=== PATIENT | female | born 1965 | race Caucasian/White ===

== ENCOUNTER → 2017-12-04 07:49 | Outpatient (CLI) | payer OTHER, SELFPAY ==
[2017-12-04 09:54] LABS: Cholesterol 225 mg/dL (140-199); HDL Cholesterol 50 mg/dL (40-60); LDL Cholesterol Calculated 149 mg/dL (<100); Triglycerides 131 mg/dL (35-150)
[2017-12-04 10:13] LABS: Thyroid Stimulating Hormone 2.36 uIU/mL (0.47-4.68)
[2017-12-04 10:17] LABS: T4 Total Thyroxine 6.33 ug/dL (5.5-11.0); T7 (Free Thyroxine Index) 2.01 (1.65-3.89); Triiodothryronine T3 Uptake 31.7 % (23.5-40.5)
[2017-12-04 11:49] LABS: Free T3, Triiodothyronine Free 3.75 pg/mL (2.77-5.27)
== END ==
PROVIDERS: PCP Nurse Practitioner Family; Visit Provider Nurse Practitioner Family
DX: E03.9 Hypothyroidism, unspecified (principal); E78.2 Mixed hyperlipidemia
CPT/HCPCS: 36415; 80061; 84436; 84443; 84479; 84481

== ENCOUNTER → 2021-04-11 08:33 | Outpatient (CLI) | payer OTHER, SELFPAY ==
[2021-04-11 09:00] LABS: Hematocrit 40.6 % (36-46); Hemoglobin 13.5 g/dL (12.0-16.0); Mean Corpuscular HGB Conc 33.3 % (30-36); Mean Corpuscular Hemoglobin 29.4 PG (26-34); Mean Corpuscular Volume 88.3 fL (80-100); Platelet Count 242 X10^3/uL (150-400); Red Cell Distribution Width 13.2 % (11.6-14.8)
[2021-04-11 09:20] LABS: Alanine Aminotransferase 35 IU/L (<35); Albumin 4.4 g/dL (3.5-5.0); Albumin Globulin Ratio 1.6 (1.0-2.8); Alkaline Phosphatase 66 U/L (38-126); Aspartate Aminotransferase 33 IU/L (14-36); BUN Creatinine Ratio 19.2 (6-22); Bilirubin Total 0.5 mg/dL (0.2-1.3); Blood Urea Nitrogen 14 mg/dL (7-17); Calcium 9.9 mg/dL (8.4-10.2); Carbon Dioxide 30 mmol/L (22-32); Chloride 103 mmol/L (98-107); Cholesterol 229 mg/dL (140-199); Estimated Glomerular Filt Rate > 60.0 mL/min (>60); Globulin 2.7 g/dL (1.7-4.1); Glucose 99 mg/dL (70-100); HDL Cholesterol 48 mg/dL (40-60); HEMOLYSIS < 15 (0-50); LDL Cholesterol Calculated 126 mg/dL (<100); Potassium 4.6 mmol/L (3.4-5.1); Sodium 141 mmol/L (137-145); Total Protein 7.1 g/dL (6.3-8.2); Triglycerides 277 mg/dL (35-150)
[2021-04-11 09:35] LABS: Free T3, Triiodothyronine Free 6.13 pg/mL (2.77-5.27); Free T4, Direct Thyroxine 0.91 ng/dL (0.78-2.19)
[2021-04-11 09:48] LABS: Thyroid Stimulating Hormone 3.24 uIU/mL (0.47-4.68)
== END ==
PROVIDERS: Family Provider Internal Medicine; PCP Registered Nurse Diabetes Educator; Referring Provider Registered Nurse Diabetes Educator; Visit Provider Registered Nurse Diabetes Educator
DX: E78.5 Hyperlipidemia, unspecified (principal); E89.0 Postprocedural hypothyroidism
CPT/HCPCS: 36415; 80053; 80061; 84439; 84443; 84481; 85027

== ENCOUNTER → 2021-06-23 13:39 | Outpatient (CLI) | payer OTHER, SELFPAY ==
[2021-06-23 14:21] LABS: COVID19 -Nasal RAPID Negative (Negative)
== END ==
PROVIDERS: Family Provider Internal Medicine; PCP Registered Nurse Diabetes Educator; Visit Provider Nurse Practitioner Family
DX: Z20.822 Contact with and (suspected) exposure to COVID-19 (principal)
CPT/HCPCS: 87635

== ENCOUNTER → 2022-10-27 07:35 | Outpatient (CLI) | payer OTHER, SELFPAY ==
--- NOTE | 2022-10-27 07:36 | DI.US.S_ITS ---
PROCEDURE: US THYROID INDICATIONS: THYROID NODULE, FULLNESS OF NECK TECHNIQUE: Real-time scanning was performed of the thyroid gland, with image documentation. [facility] 15[facility] 15[facility]28. FINDINGS: Right: Thyroid lobe measures 5.2 x 1.2 x 2.2 cm, and is homogeneous in echotexture. Left: Thyroid lobe is surgically absent. Isthmus: 2 mm thick. Nodule number: 1 Location: Right upper Size: 0.8 x 0.3 x 0.6 cm compared to 0.2 x 0.1 x 0.3 cm. Composition: Partially solid Echogenicity: Hypoechoic Shape: wider than tall. Margins: Smooth Echogenic foci: Punctate Total points: 4 ACR TI-RADS category: 4 Nodule number: 2 Location: Right upper Size: 1.2 x 0.6 x 1.1 cm. Composition: Solid Echogenicity: Hypoechoic Shape: wider than tall. Margins: Smooth Echogenic foci: None Total points: 4 ACR TI-RADS category: 4 Nodule number: 3 Location: Right mid Size: 0.9 x 0.6 x 0.9 cm. Composition: Solid Echogenicity: Hypoechoic Shape: wider than tall. Margins: Smooth Echogenic foci: None Total points: 4 ACR TI-RADS category: 4 Nodule number: 4 Location: Right mid Size: 0.8 x 0.5 x 0.6 cm. Composition: Solid Echogenicity: Hypoechoic Shape: wider than tall. Margins: Smooth Echogenic foci: None Total points: 4 ACR TI-RADS category: 4 Nodule number: 5 Location: Right posterior Size: 0.8 x 0.6 x 0.8 cm. Composition: Solid Echogenicity: Hypoechoic Shape: wider than tall. Margins: Smooth Echogenic foci: None Total points: 4 ACR TI-RADS category: 4 IMPRESSION: Lesion 2 is considered category 4, secondary to size, recommend follow-up at 1, 2, 3 and 5 years. The remaining lesions are considered category 4. Secondary to size, no additional follow-up is recommended. ACR TI-RADS definitions and recommendations: TI-RADS 1 (benign): 0 points. FNA not needed. TI-RADS 2 (not suspicious): 2 points. FNA not needed. TI-RADS 3 (mildly suspicious): 3 points. * FNA if 2.5 cm or larger, follow up if 1.5 cm or larger (at 1, 3, and 5 years). TI-RADS 4 (moderately suspicious): 4-6 points. * FNA if 1.5 cm or larger, follow up if 1 cm or larger (at 1, 2, 3, and 5 years). TI-RADS 5 (highly suspicious): 7 points or more. * FNA if 1 cm or larger, follow up if 0.5 cm or larger (every year for 5 years). Dictated by: Amairani Helms M.D. on 10/27/2022 at 17:55 Approved by: Amairani Helms M.D. on 10/27/2022 at 17:58
[2022-10-27 09:23] LABS: Hematocrit 39.5 % (36-46); Hemoglobin 13.6 g/dL (12.0-16.0); Mean Corpuscular HGB Conc 34.5 % (30-36); Mean Corpuscular Hemoglobin 30.4 PG (26-34); Mean Corpuscular Volume 88.3 fL (80-100); Platelet Count 254 X10^3/uL (150-400); Red Blood Cell Count 4.47 X10^6/uL (4.0-5.2); Red Cell Distribution Width 13.5 % (11.6-14.8); White Blood Cell Count 6.1 X10^3/uL (4.5-11.0)
[2022-10-27 09:29] LABS: Alanine Aminotransferase 23 IU/L (<35); Albumin 4.4 g/dL (3.5-5.0); Albumin Globulin Ratio 1.4 (1.0-2.8); Alkaline Phosphatase 63 U/L (38-126); Aspartate Aminotransferase 24 IU/L (14-36); BUN Creatinine Ratio 22.2 (6-22); Bilirubin Total 0.8 mg/dL (0.2-1.3); Blood Urea Nitrogen 16 mg/dL (7-17); Calcium 9.5 mg/dL (8.4-10.2); Carbon Dioxide 29 mmol/L (22-32); Chloride 103 mmol/L (98-107); Cholesterol 197 mg/dL (140-199); Estimated Glomerular Filt Rate > 60 mL/min (>60); Globulin 3.1 g/dL (1.7-4.1); Glucose 102 mg/dL (70-100); HDL Cholesterol 46 mg/dL (40-60); HEMOLYSIS < 15 (0-50); LDL Cholesterol Calculated 120 mg/dL (<100); Potassium 4.3 mmol/L (3.4-5.1); Sodium 140 mmol/L (137-145); Total Protein 7.5 g/dL (6.3-8.2); Triglycerides 153 mg/dL (35-150)
[2022-10-27 10:08] LABS: Free T3, Triiodothyronine Free 4.46 pg/mL (2.77-5.27); Free T4, Direct Thyroxine 0.86 ng/dL (0.78-2.19)
[2022-10-27 10:21] LABS: Thyroid Stimulating Hormone 2.34 uIU/mL (0.47-4.68)
[2022-10-27 10:46] LABS: Neutrophils Absolute Manual 4270 /uL (3000-5900); RBC Morphology Normal Morphology; Total Cells Counted 100
[2022-10-30 17:48] LABS: Hep C Virus Ab w/Reflex Quant NEGATIVE s/c (NEGATIVE)
== END ==
PROVIDERS: Family Provider Internal Medicine; PCP Nurse Practitioner; Referring Provider Nurse Practitioner; Visit Provider Nurse Practitioner
DX: Z00.00 Encounter for general adult medical examination without abnormal findings (principal); E04.1 Nontoxic single thyroid nodule; E03.9 Hypothyroidism, unspecified; Z11.59 Encounter for screening for other viral diseases
CPT/HCPCS: 36415; 76536; 80053; 80061; 84439; 84443; 84481; 85025; 86803

== ENCOUNTER → 2025-02-23 07:10 | Outpatient (CLI) | payer OTHER, SELFPAY ==
[2025-02-23 07:41] LABS: Add Manual Diff / Slide Review NO; Hematocrit 39.3 % (36-46); Hemoglobin 13.6 g/dL (12.0-16.0); Lymphocytes Absolute Auto 1300 /uL (1100-4500); Mean Corpuscular HGB Conc 34.6 % (30-36); Mean Corpuscular Hemoglobin 30.2 PG (26-34); Mean Corpuscular Volume 87.2 fL (80-100); Platelet Count 224 X10^3/uL (150-400)
[2025-02-23 08:00] LABS: Alanine Aminotransferase 21 IU/L (<35); Albumin 4.2 g/dL (3.5-5.0); Albumin Globulin Ratio 1.7 (1.0-2.8); Alkaline Phosphatase 70 U/L (38-126); Blood Urea Nitrogen 14 mg/dL (7-17); Calcium 9.2 mg/dL (8.4-10.2); Carbon Dioxide 26 mmol/L (22-32); Chloride 106 mmol/L (98-107); Cholesterol 214 mg/dL (140-199); Estimated Glomerular Filt Rate > 60 mL/min (>60); Globulin 2.5 g/dL (1.7-4.1); Glucose 107 mg/dL (70-99); HDL Cholesterol 59 mg/dL (40-60); HEMOLYSIS < 15 (0-50); Potassium 4.4 mmol/L (3.4-5.1); Sodium 139 mmol/L (137-145); Total Protein 6.7 g/dL (6.3-8.2); Triglycerides 275 mg/dL (35-150)
[2025-02-23 08:14] LABS: Free T3, Triiodothyronine Free 4.31 pg/mL (2.77-5.27); Free T4, Direct Thyroxine 0.76 ng/dL (0.78-2.19)
[2025-02-23 08:27] LABS: Thyroid Stimulating Hormone 2.56 uIU/mL (0.47-4.68)
== END ==
PROVIDERS: Family Provider Internal Medicine; PCP Nurse Practitioner; Referring Provider Nurse Practitioner; Visit Provider Nurse Practitioner
DX: Z00.00 Encounter for general adult medical examination without abnormal findings (principal)
CPT/HCPCS: 36415; 80053; 80061; 84439; 84443; 84481; 85025

== ENCOUNTER → 2025-04-28 07:57 | Outpatient (CLI) | payer OTHER, SELFPAY ==
--- NOTE | 2025-04-28 07:59 | DI.RAD.S_ITS ---
PROCEDURE: XR CHEST 2V INDICATIONS: Cough, unspecified TECHNIQUE: 2 views of the chest were acquired. COMPARISON: None. FINDINGS: Artifacts from overlying clothing partially obscure radiographic detail. [id number] bilateral perihilar and lower lobe peribronchial thickening with patchy lower lobe opacities, more than expected for artifact from expiratory result and bronchitis, viral infection, bronchopneumonia, atypical pneumonia or other process should be considered. Cardiopericardial silhouette and pulmonary vasculature within normal limits. No pneumothorax, no pleural effusion. IMPRESSION: [id number] peribronchial thickening and patchy opacities as discussed above. Follow-up suggested. If symptoms persist or worsen, CT chest could be performed. Dictated by: Marco Andre M.D. on 04/28/2025 at 19:22 Approved by: Marco Andre M.D. on 04/28/2025 at 21:40
== END ==
LOC: RAD 07:58
PROVIDERS: Family Provider Internal Medicine; PCP Nurse Practitioner; Referring Provider Nurse Practitioner; Visit Provider Nurse Practitioner
DX: R05.9 Cough, unspecified (principal)
CPT/HCPCS: 71046

== ENCOUNTER → 2025-06-05 12:30 | Outpatient (CLI) | payer OTHER, SELFPAY ==
--- NOTE | 2025-06-05 12:31 | DI.CT.S_ITS ---
PROCEDURE: CT CHEST WO CON INDICATIONS: abnormal cough TECHNIQUE: Noncontrast 5 mm thick sections acquired from the pulmonary apices to the posterior costophrenic angles. 1 mm lung window, 5 mm thick coronal and sagittal and 7 mm axial MIP reformats were then acquired. For radiation dose reduction, the following was used: automated exposure control, adjustment of mA and/or kV according to patient size. COMPARISON: None. FINDINGS: Image quality: Diagnostic. Lower Neck: No enlarged lymph nodes. Thyroid: No thyroid nodules which require sonographic follow up, per consensus guidelines. Apparent prior left thyroidectomy. Axillae: No enlarged lymph nodes. Chest Wall: Apparent prior bilateral mastectomy.. Bones: Unremarkable. Lungs and Pleura: No pneumothorax or pleural effusions. No consolidation or suspicious nodules. Heart: Heart size is normal. No pericardial effusion. Thoracic Vessels: The aorta and pulmonary arteries demonstrate normal size. Mediastinum and Tania: No enlarged lymph nodes. Esophagus: No wall thickening. No hiatal hernia. Upper Abdomen: Visualized upper abdomen solid organs and bowel loops appear normal. IMPRESSION: No pneumonia or evidence of metastatic disease is found. Source of persistent cough is not identified. Apparent prior left thyroidectomy, bilateral mastectomy. Dictated by: Joel Morton M.D. on 06/05/2025 at 15:31 Approved by: Joel Morton M.D. on 06/05/2025 at 15:33
== END ==
LOC: CT 12:31
PROVIDERS: Family Provider Internal Medicine; PCP Nurse Practitioner; Referring Provider Nurse Practitioner; Visit Provider Nurse Practitioner
DX: R05.9 Cough, unspecified (principal); R93.89 Abnormal findings on diagnostic imaging of other specified body structures; Z90.13 Acquired absence of bilateral breasts and nipples
CPT/HCPCS: 71250